=== PATIENT | male | born 1975 | race Caucasian/White ===

== ENCOUNTER 2018-12-26 12:18 | Emergency (ER) | payer BC, OTHER ==
[~2018-12-26] VITALS: Ht 175.3 cm; Wt 99.0 kg
[2018-12-26 12:20] VITALS: BP 127/75; PULSE 78; RESP 20; Ht 175.3 cm; Wt 99.0 kg
[2018-12-26] MEDS ORDERED: HYDROmorphONE 2 MG/ML SYG IM STA ×2 (12:22→13:21)
[2018-12-26] MEDS ORDERED: ONDANSETRON (ODT) 4 MG TAB ODT STA (12:22)
[2018-12-26] MEDS ORDERED: KETOROLAC 30 MG INJ IM STA (12:22)
[2018-12-26] MEDS ORDERED: CYCL10TA7 PO (12:52)
[2018-12-26] MEDS ORDERED: ATOR10TA65 PO (12:54)
[2018-12-26] MEDS ORDERED: HYDR-3980 PO (14:01)
[2018-12-26] MEDS ORDERED: IBUP-1542 PO (14:01)
[2018-12-26] MEDS ORDERED: NALO4SPR NS (14:01)
--- NOTE | 2018-12-26 15:56 | ERD ---
ER Documentation Chief Complaint Chief Complaint biba, unable to move/ambulate d/t worse sciatica attack today HPI Patient is a 43-year-old male with high cholesterol and sciatica who presents saying that he has "sciatica". He was brought in by ambulance. He has pain in his left buttock that radiates down his left leg on the posterior aspect. He has had sciatic pain since 2013. He said this pain started 4 weeks ago and was gradual in onset but today it was worse. He said that he lifts heavy weights at the gym which is likely the cause of it. He took Flexeril and Tylenol for the pain. He denies incontinence, fevers, or intravenous drug use. He had an MRI in 2013 which showed a bulging disc in the lower back. ROS All systems reviewed and are negative except as per history of present illness. Medications Home Meds Active Scripts Naloxone HCl nasal spray (Narcan 4 mg/0.1 mL nasal) 4 Mg [place], 4 MG NS .Q2-3MIN for OPIOID OVERDOSE, #2 SPRAY 0 Refills [place] 0.1 mL into one nostril. Repeat with second device into other nostril after 2-3 minutes if no or minimal response Prov:EVGENY FOFANA MD 12/26/18 Hydrocodone/Acetaminophen ([place] 10-325 Tablet) 1 Each Tablet, 1 TAB PO Q6H PRN for PAIN, #7 TAB Prov:EVGENY FOFANA MD 12/26/18 Ibuprofen* (Motrin*) 600 Mg Tab, 600 MG PO Q6H PRN for PAIN AND OR ELEVATED TEMP, #30 TAB Prov:EVGENY FOFANA MD 12/26/18 Reported Medications Atorvastatin Calcium (Atorvastatin Calcium) 10 Mg Tablet, 10 MG PO QHS, #30 TAB 12/26/18 Cyclobenzaprine Hcl* (Cyclobenzaprine Hcl*) 10 Mg Tablet, 10 MG PO TID, #90 TAB 12/26/18 Allergies Allergies: Coded Allergies: No Known Allergy (Unverified , 12/26/18) PMhx/Soc Hx Miscellaneous Medical Probl: Yes (sciatica) Hx Alcohol Use: Yes Hx Substance Use: No Hx Tobacco Use: No Smoking Status: Never smoker FmHx Family History: No diabetes Physical Exam Vitals Vital Signs Date Temp Pulse Resp B/P (MAP) Pulse Ox O2 O2 Flow FiO2 Time Delivery Rate 12/26/18 98.5 78 20 127/75 99 12:20 (92) Physical Exam Const: Moderate distress Head: Atraumatic Eyes: Normal Conjunctiva ENT: Normal External Ears, Nose and Mouth. Neck: Full range of motion. No meningismus. Resp: Clear to auscultation bilaterally Cardio: Regular rate and rhythm, no murmurs Abd: Soft, non tender, non distended. Normal bowel sounds Skin: No petechiae or rashes Back: No midline or flank tenderness, pain with straight leg raise of the left leg Ext: No cyanosis, or edema Neur: Awake and alert Psych: Normal Mood and Affect Results 24 hrs Current Medications Medications Dose Sig/Krysta Start Time Status Last (Trade) Ordered Route PRN Stop Time Admin Dose Reason Admin 2 mg ONCE STAT 12/26/18 DC 12/26/18 Hydromorphone IM 12:22 12:26 HCl 12/26/18 12:23 (Dilaudid) Ketorolac 30 mg ONCE STAT 12/26/18 DC 12/26/18 Tromethamine IM 12:22 12:26 (Toradol) 12/26/18 12:23 Ondansetron 4 mg ONCE STAT 12/26/18 DC 12/26/18 HCl (Zofran ODT 12:22 12:26 Odt) 12/26/18 12:23 2 mg ONCE STAT 12/26/18 DC 12/26/18 Hydromorphone IM 13:21 13:27 HCl 12/26/18 13:22 (Dilaudid) Procedures/MDM Patient is a 43-year-old male who presents with acute sciatic pain. I doubt epidural abscess, epidural hematoma, or cauda equina syndrome. I believe outpatient management is appropriate at this time. The patient was given Dilaudid and Toradol with improvement of his pain. I do not believe he requires imaging studies at this time but will need to follow-up with the local clinics to obtain a primary doctor. If his pain persists he may benefit from outpatient MRI. Departure Diagnosis: Primary Impression: Sciatica Laterality: left Qualified Codes: M54.32 - Sciatica, left side Additional Impression: Back pain Back pain location: low back pain Chronicity: acute Back pain laterality: left Sciatica presence: with sciatica Sciatica laterality: sciatica of left side Qualified Codes: M54.42 - Lumbago with sciatica, left side Condition: Fair Patient Instructions: Back Pain W/ Sciatica Referrals: COMMUNITY CLINICS YOU HAVE RECEIVED A MEDICAL SCREENING EXAM AND THE RESULTS INDICATE THAT YOU DO NOT HAVE A CONDITION THAT REQUIRES URGENT TREATMENT IN THE EMERGENCY DEPARTMENT. FURTHER EVALUATION AND TREATMENT OF YOUR CONDITION CAN WAIT UNTIL YOU ARE SEEN IN YOUR DOCTORS OFFICE WITHIN THE NEXT 1-2 DAYS. IT IS YOUR RESPONSIBILITY TO MAKE AN APPOINTMENT FOR FOLOW-UP CARE. IF YOU HAVE A PRIMARY DOCTOR --you should call your primary doctor and schedule an appointment IF YOU DO NOT HAVE A PRIMARY DOCTOR YOU CAN CALL OUR PHYSICIAN REFERRAL HOTLINE AT IF YOU CAN NOT AFFORD TO SEE A PHYSICIAN YOU CAN CHOSE FROM THE FOLLOWING [facility] [address] [facility] [address] [facility] [facility] [address] [facility] [address]. [facility] [address] [facility] [facility]. [address] Additional Instructions: Call your primary care doctor TOMORROW for an appointment during the next 1-2 days.See the doctor sooner or return here if your condition worsens before your appointment time. EVGENY FOFANA MD December 26, 2018 15:56
== END 2018-12-26 16:26 | disposition home or self-care (01) ==
LOC: E/R 12:18
DX: M54.42 Lumbago with sciatica, left side (principal)
CPT/HCPCS: 96372; 99284; J1170; J1885